=== PATIENT | male | born 1950 | race Caucasian/White ===

== ENCOUNTER 2023-10-05 08:20 | Day surgery (SDC) | payer BC ==
[2023-09-27 16:19] VITALS: BMI 21.9
[2023-10-05 08:34] VITALS: RESP 18
[2023-10-05 09:46] VITALS: TEMP 97.4
[2023-10-05 10:00] VITALS: BP 113/56; PULSE 57
== END 2023-10-05 10:00 | disposition home or self-care (01) ==
LOC: FASU-ENDO 08:20
PROVIDERS: ATTEND Internal Medicine Gastroenterology
PROC: 0DJD8ZZ Inspection of Lower Intestinal Tract, Via Natural or Artificial Opening Endoscopic (ICD-10-PCS; principal; 2023-10-05 09:25)
DX: Z12.11 Encounter for screening for malignant neoplasm of colon (principal); K64.1 Second degree hemorrhoids; K64.8 Other hemorrhoids; K57.30 Diverticulosis of large intestine without perforation or abscess without bleeding